=== PATIENT | female | born 1985 | race Two or more races ===

== ENCOUNTER 2017-10-06 16:28 | Emergency (ER) | payer OTHER ==
--- NOTE | 2017-10-06 17:09 | ED Physician Chart ---
ED Chief Complaint/HPI - Patient Information Date Seen:: 10/06/17 Time Seen:: 17:09 Chief Complaint:: Abdominal pain History of Present Illness:: 32 yo female had abdominal pain for 3 days. She was treated for UTI with ciprofloxacin for 3 days. Her LMP was on middle July 2017. Therefore, she did home test today at 1300 and it was positive. Patient still had mild to moderate abdominal pain. Allergies:: Allergies Allergy/AdvReac Type Severity Reaction Status Date / Time No Known Allergies Allergy Verified 10/06/17 16:48 Vitals:: Vital Signs - 8 hr 10/06/17 16:48 Temp 98.5 F HR 90 RR 16 BP 121/76 O2 Sat % 98 ED Review of Systems - Review of Systems General/Constitutional: No fever, No chills Skin: No skin lesions (v) Head: No headache ENT: No earache Neck: No neck pain Cardio Vascular: No chest pain Pulmonary: No SOB GI: No nausea, No vomiting, Pain G/U: Dysuria Musculoskeletal: No bone or joint pain Psychiatric: No prior psych history Neurological: No focal symptoms ED Past Medical History - Past Medical History Past Medical History: Other (cervical cancer) Social History: Non Smoker, No Alcohol, No Drug Use Surgical History: None Family Medical History - Family Member Mother Hx Family Cancer: No Hx Family Coronary Artery Disease: No Hx Family Congestive Heart Failure: No Hx Family Hypertension: No Hx Family Stroke: No Hx Family Diabetes: No Hx Family Seizures: No Hx Family Dementia: No Hx Family HIV: No Hx Family COPD: No Hx Family Psychiatric Problems: No Hx Family Tuberculosis: No ED Physical Exam - Physical Examination General/Constitutional: Awake Head: Atraumatic Eyes: PERRL Skin: No skin lesions ENMT: Nasal exam nl Neck: No nuchal rigidity Respiratory: Clear to Auscultation Cardio Vascular: RRR, No murmur, gallop, rubs, NL S1 S2 Other GI comments:: Low abdomen tenderness Extremities: normal strength in all extremities Neuro/Psych: No focal deficits ED Labs/Radiology/EKG Results - Radiology Results Results: OB ultrasound: echogenic area within uterine fundus, fibroid along lower uterine region 3.8 x 3.1 cm ED Assessment - Assessment General Assessment: Positive gestation Abdominal pain Leukocytosis Uterine fibroid Assessment/Comments:: CBC, CMP, UA hCG level OB ultrasound Ancef 1g IV NS 1L IV bolus D/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 Is Septic Shock (SBP<90, OR Lactate>4 mmol\L) present?: No - <6hrs of presentation: Vital Signs: Vital Signs - 8 hr 10/06/17 16:48 Temp 98.5 F HR 90 RR 16 BP 121/76 O2 Sat % 98 ED Reassessment (Disposition) - Reassessment Reassessment Condition:: Improved - Patient Disposition Discharge/Transfer:: Home ED Discharge Plan - Patient Disposition Admit/Discharge/Transfer: PT DISCHARGED HOME Condition at Disposition: Improved Prescriptions: Cephalexin [Keflex] 500 mg PO Q12HR #14 cap Instructions: ABCs of , Leukocytosis Additional Instructions: Follow up with your primary care provider and PERSONAL FINANCIAL REPRESENTATIVE tomorrow. Take medication as prescribed. Start taking vitamins. Drink plenty of fluids to keep hydrated. Return to ER immediately if symptoms worsen.
[2017-10-06 17:28] LABS: % BASOPHILS 0.3 % (0.0-2.0); % EOSINOPHILS 0.9 % (0.0-5.0); % MONOCYTES 5.8 % (2.0-10.0); EOSINOPHILE ABSOLUTE 0.1 Th/cmm (0.1-0.4); HEMATOCRIT 43.7 % (41.0-60); HEMOGLOBIN 14.5 gm/dL (12-16); LYMPHOCYTE ABSOLUTE 4.3 Th/cmm (1.5-3.0); MEAN CELL VOLUME 88.9 fl (81-100); MEAN CORPUSCULAR HEMOGLOBIN 29.5 pg (27.0-31.0); MEAN CORPUSCULAR HGB CONC 33.1 pg (28.0-36.0); MEAN PLATELET VOLUME 7.4 fl; MONOCYTE ABSOLUTE 0.9 Th/cmm (0.3-1.0); NEUTROPHILE ABSOLUTE 10.6 Th/cmm (1.8-8.0); PLATELET COUNT 319 Th/cmm (150-400); RED BLOOD COUNT 4.92 Mil/cmm (3.80-5.10); RED CELL DISTRIBUTION WIDTH 11.7 % (11.5-20.0)
[2017-10-06 17:39] LABS: URINE MICROSCOPIC INDICATED? YES; URINE SOURCE CLEAN C
[2017-10-06 17:41] LABS: URINE BILIRUBIN NEGATIVE (NEGATIVE); URINE BLOOD NEGATIVE (NEGATIVE); URINE GLUCOSE (UA) NEGATIVE (NEGATIVE); URINE KETONE NEGATIVE (NEGATIVE); URINE LEUKOCYTE ESTERASE NEGATIVE (NEGATIVE); URINE NITRATE NEGATIVE (NEGATIVE); URINE PROTEIN NEGATIVE (NEGATIVE); URINE UROBILINOGEN 0.2 E.U./dL (0.2 - 1.0)
[2017-10-06 17:42] LABS: ALB/GLOB RATIO 1.4 (1.0-1.8); ALBUMIN 4.4 gm/dL (3.7-5.3); ALKALINE PHOSPHATASE 58 U/L (34-104); ANION GAP 12.9 (7.0-16.0); BILIRUBIN,TOTAL 0.2 mg/dL (0.3-1.0); BUN - UREA NITROGEN 9 mg/dL (7-25); CALCIUM SERUM 9.6 mg/dL (8.6-10.3); CARBON DIOXIDE 22.5 mEq/L (21.0-31.0); CHLORIDE 103 mEq/L (98-107); CREATININE - SERUM 0.6 mg/dL (0.6-1.2); GFR AFRICAN-AMERICAN > 60.0 ml/min (>90); GFR NON AFRICAN-AMERICAN > 60.0 ml/min; GLUCOSE 88 mg/dL (70-105); POTASSIUM SERUM 3.4 mEq/L (3.5-5.1); SGOT 20 U/L (13-39); SGPT/ALT 23 U/L (7-52); SODIUM SERUM 135 mEq/L (136-145); TOTAL PROTEIN,SERUM 7.5 gm/dL (6.0-8.3)
[2017-10-06 17:47] LABS: WHITE BLOOD COUNT 15.9 Th/cmm (4.8-10.8)
[2017-10-06 17:59] LABS: URINE CLARITY CLEAR (CLEAR); URINE COLOR YELLOW
[2017-10-06 18:02] LABS: URINE BACTERIA NONE SEEN /hpf (NONE SEEN); URINE EPITHELIAL CELLS NONE SEEN /lpf (FEW); URINE RBC NONE SEEN /hpf (0-5); URINE WBC NONE SEEN /hpf (0-5)
[2017-10-06] MEDS ORDERED: Sodium Chloride 0.9% 1,000 ML IV ONE (19:25)
[2017-10-06] MEDS ORDERED: ceFAZolin 1 GM in Sodium Chloride 0.9% 50 ML IV ONE (19:25)
--- NOTE | 2017-10-07 09:13 | Diagnostic Imaging Report ---
Ultrasound OB < 14 weeks HISTORY: female with pain. History of surgery for cervical cancer 9 years ago. COMPARISON: None Technique: Longitudinal and transverse sonographic sector images of the pelvis were obtained transabdominally. FINDINGS: Exam is limited as transvaginal views were not obtained. The uterus measures 9.8 x 5.2 x 5.5 cm. There is an echogenic area within the uterine fundus which may represent a gestational sac, however, no pole or yolk sac was identified. There is a heterogeneous area seen along the lower uterine/cervix region measuring 3.8 x 3.1 cm. The right ovary measures 2.4 x 1.8 cm. The left ovary measures 3.3 x 2.2 cm. No evidence of free fluid in the pelvis. IMPRESSION: Echogenic renal within the uterine fundal region which may represent intrauterine gestational sac and decidual reaction , however, no yolk sac or pole was identified at this time. Exam was limited due to technique. This may represent a very early intrauterine gestational sac or a pseudogestational sac. Note that at this time an ectopic cannot be excluded. Recommend correlation and serial beta hCGs and repeat ultrasound for further assessment. Possible fibroid or other mass lesion along the lower uterine/cervical region measuring 3.8 x 3.1 cm again repeat exam is recommended. No evidence of free fluid in the pelvis. In the presence of a positive test, ectopic gestation should be excluded.
== END 2017-10-06 21:47 | disposition home or self-care (01) ==
LOC: ER 16:28
DX: O26.899 Other specified pregnancy related conditions, unspecified trimester (principal); R10.9 Unspecified abdominal pain; O34.10 Maternal care for benign tumor of corpus uteri, unspecified trimester
CPT/HCPCS: 99285; 96365; 76801; 36415; 84702; 83605; 85025; 81001; 81025; 80053; 87040; J0690; J7030